=== PATIENT | female | born 1965 | race Caucasian/White ===

== ENCOUNTER 2022-01-21 14:07 | Outpatient (CLI) | payer OTHER, SELFPAY ==
[2022-01-21 14:40] LABS: Appearance Urine Clear (Clear); Bilirubin Urine Negative (Negative); Blood Urine Negative (Negative); Color Urine Yellow (Yellow); Glucose Urine UA Negative (Negative); Ketones Urine Negative (Negative); Leukocyte Esterase Ur Negative LEU/UL (NEGATIVE); Nitrate Urine Negative (Negative); Protein Urine Negative (Negative); Specific Grav Ur >= 1.030 (1.001-1.035); Urobilinogen Urine 0.2 mg/dL (<2.0)
[2022-01-21 15:53] LABS: Add Urine Microscopic? NO
== END 2022-01-21 14:08 | disposition home or self-care (01) ==
LOC: ANHLAB 14:09
PROVIDERS: PCP Internal Medicine; Visit Provider Physician Assistant
DX: R30.0 Dysuria (principal)
CPT/HCPCS: 81003; 87086

== ENCOUNTER 2022-01-25 01:14 | Day surgery (SDC) | payer OTHER, SELFPAY ==
[2022-01-06 13:04] VITALS: BMI 27.3
--- NOTE | 2022-01-25 07:34 | P.PNAN_ITS ---
Anes - Initial Pre Proc Eval Procedure: Operation Date: 01/25/22 08:30 Proposed Procedures p Colonoscopy - Bjorn Nunez MD Date/Time: 01/25/22 07:34 Surgeon: Bjorn Nunez MD Pre Op Diagnosis: diarrhea Patient Data Age: 56 Gender: F Height: 1.6 m Weight: 70 kg Allergies Allergy/AdvReac Type Severity Reaction Status Date / Time No Known Allergies Allergy Verified 01/06/22 13:04 Home Medications Medication Instructions Recorded Confirmed Type doxycycline hyclate 100 mg capsule 100 mg PO DAILY PRN other 01/30/21 01/06/22 History hydrochlorothiazide 12.5 mg tablet 12.5 mg PO DAILY #90 tabs 08/18/21 01/06/22 Rx escitalopram oxalate 10 mg tablet 10 mg PO DAILY #90 tabs 08/29/21 01/06/22 Rx (Lexapro) cyclobenzaprine 10 mg tablet 10 mg PO .HS PRN muscle spasm #30 12/16/21 01/06/22 Rx tabs rosuvastatin 5 mg tablet (Crestor) 5 mg PO DAILY #90 tabs 12/16/21 01/06/22 Rx azelastine 137 mcg (0.1 %) nasal 2 spray intranasal Q12H PRN 01/06/22 01/06/22 History spray aerosol Allergy Symptoms quetiapine 25 mg tablet 12.5 mg PO DAILY PRN Sleep 01/06/22 01/06/22 History Patient hx anesthesia problems: none Family hx anesthesia problems: none Results Review: All pre-operative results and documents have been reviewed as part of the pre- operative evaluation. [facility] Past Medical History Medical History (Updated 01/25/22 @ 07:37 by Guerrero Caballero MD) Anxiety Arthritis HTN (hypertension) Hyperlipidemia Hyperlipidemia Hypertension Overweight (BMI 25.0-29.9) Social History Social History Smoking status: Current every day smoker Tobacco type: cigarettes Second hand tobacco smoke exposure: No Alcohol intake: current Alcohol use details: socially Substance use: never Living arrangements: with family Gender identity (if verbalized by the patient): Female Spiritual care concerns: No Anes - Eval Final PreProcedure Day of Procedure 01/25/22 07:34 Patient weight: overweight Heart: regular rate and rhythm Lungs: clear to auscultation and normal air movement Airway: Mallampati scale class II Neurological: alert and oriented Last oral intake: >/= 8 hours ASA classification: II Emergent: no Anesthetic plan: proceed Anesthesia type and monitoring: general GIVS Results Review: All pre-operative results and documents have been reviewed as part of the pre- operative evaluation. Informed Consent: The patient's anesthetic plan and its attendant risks and benefits were discussed with the patient/family/POA. Questions were solicited and answers provided to the satisfaction of the patient/family/POA.
[2022-01-25 07:42] VITALS: BP 134/92; PULSE 83; RESP 16; TEMP 36.4; O2SAT 99; BMI 26.5
[2022-01-25] MEDS: LACTATED RINGERS 1,000 ML 150 ML IV CONT (07:54)
--- NOTE | 2022-01-25 08:14 | PM.IMHP ---
H&P: HPI History of Present Illness Date/Time: 01/25/22 08:14 Chief Complaint: Intermittent diarrhea. Narrative: This is a 56-year-old white female patient I am asked see because of diarrhea. Patient reports over the last several months has had intermittent diarrhea off and on. She states this began while being on a keto diet . Symptoms have improved on increasing fiber in her diet. Currently takes psyllium daily. She denies any blood in her stools. She has had no abdominal pain. Her weight has remained stable. She presents today for screening colonoscopy also to evaluate source of diarrhea. Review of Systems Review of Systems: Review of systems noncontributory. [facility] Past Medical History Medical History (Updated 01/25/22 @ 08:17 by Bjorn Nunez MD) Anxiety Arthritis HTN (hypertension) Hyperlipidemia Hyperlipidemia Hypertension Overweight (BMI 25.0-29.9) Social History Social History Smoking status: Current every day smoker Tobacco type: cigarettes Second hand tobacco smoke exposure: No Alcohol intake: current Alcohol use details: socially Substance use: never Living arrangements: with family Gender identity (if verbalized by the patient): Female Spiritual care concerns: No Meds Home Medications and Allergies Home Medications Medication Instructions Recorded Confirmed Type doxycycline hyclate 100 mg capsule 100 mg PO DAILY PRN other 01/30/21 01/06/22 History hydrochlorothiazide 12.5 mg tablet 12.5 mg PO DAILY #90 tabs 08/18/21 01/06/22 Rx escitalopram oxalate 10 mg tablet 10 mg PO DAILY #90 tabs 08/29/21 01/06/22 Rx (Lexapro) cyclobenzaprine 10 mg tablet 10 mg PO .HS PRN muscle spasm #30 12/16/21 01/06/22 Rx tabs rosuvastatin 5 mg tablet (Crestor) 5 mg PO DAILY #90 tabs 12/16/21 01/06/22 Rx azelastine 137 mcg (0.1 %) nasal 2 spray intranasal Q12H PRN 01/06/22 01/06/22 History spray aerosol Allergy Symptoms quetiapine 25 mg tablet 12.5 mg PO DAILY PRN Sleep 01/06/22 01/06/22 History Allergies Allergy/AdvReac Type Severity Reaction Status Date / Time No Known Allergies Allergy Verified 01/06/22 13:04 Vital Signs Vital Signs - 24 hr 01/25/22 07:42 Temperature 97.5 F L Pulse Rate 83 Respiratory Rate 16 Blood Pressure 134/92 H Pulse Oximetry 99 Oxygen Delivery Room Air Exam Narrative: Physical exam reveals patient to be alert. Vital signs stable. HEENT exam is unremarkable. Patient is anicteric. Lungs are clear to auscultation and percussion. Heart is without murmur or extra sounds. Abdominal exam bowel sounds are present soft nontender with no organomegaly. Digital external rectal exam is normal. Assessment and Plan Assessment and plan (1) Diarrhea: Code(s): R19.7 - Diarrhea, unspecified Status: Acute Assessment and Plan: likely related to irritable bowel syndrome fiber supplementation is encouraged. Balanced diet encouraged further recommendations will be given after endoscopy. (2) Encounter for screening colonoscopy: Code(s): Z12.11 - Encounter for screening for malignant neoplasm of colon Status: Acute Assessment and Plan: Patient presents for screening colonoscopy because of her age. This also gives an opportunity to assess for etiology of diarrhea.
[2022-01-25 08:43] VITALS: BP 123/87; PULSE 79; RESP 16; O2SAT 96
[2022-01-25 08:52] VITALS: BP 113/72; PULSE 77; RESP 16; O2SAT 96
[2022-01-25 09:00] VITALS: BP 123/80; PULSE 73; RESP 16; O2SAT 100
== END 2022-01-25 09:10 | disposition home or self-care (01) ==
PROVIDERS: PCP Internal Medicine; Visit Provider Internal Medicine Gastroenterology
PROC: 0DJD8ZZ Inspection of Lower Intestinal Tract, Via Natural or Artificial Opening Endoscopic (ICD-10-PCS; CPT 45378; principal; 2022-01-25 08:30)
DX: Z12.11 Encounter for screening for malignant neoplasm of colon (principal); K52.9 Noninfective gastroenteritis and colitis, unspecified; I10 Essential (primary) hypertension; F41.9 Anxiety disorder, unspecified; M19.90 Unspecified osteoarthritis, unspecified site; E78.5 Hyperlipidemia, unspecified; F17.210 Nicotine dependence, cigarettes, uncomplicated
CPT/HCPCS: 45380; 88305; J2704; J7120

== ENCOUNTER 2022-02-26 13:05 | Outpatient (RCR) | payer OTHER, SELFPAY ==
[2022-02-26] MEDS: diphenhydrAMINE HCl CAP 25 MG CAPSULE PO (13:12)
[2022-02-26] MEDS: ACETAMINOPHEN 325 MG TABLET 650 MG PO (13:12)
[2022-02-26] MEDS: FAMOTIDINE 20 MG TABLET PO (13:12)
[2022-02-26 13:15] VITALS: BP 130/81; PULSE 81; TEMP 36.2; O2SAT 99
[2022-02-26] MEDS: BEBTELOVIMAB 175 MG/2 ML VIAL IV PUSH (13:29)
[2022-02-26 14:11] VITALS: BP 131/86; PULSE 81; O2SAT 97
== END 2022-02-26 16:00 ==
LOC: AMCINF 13:05
PROVIDERS: PCP Internal Medicine; Referring Provider Internal Medicine; Visit Provider Internal Medicine Hematology & Oncology
DX: U07.1 COVID-19 (principal); I10 Essential (primary) hypertension
CPT/HCPCS: A9270; M0222; Q0222